=== PATIENT | female | born 1990 | race Caucasian/White ===

== ENCOUNTER 2019-08-12 08:30 | Emergency (ER) | payer SELFPAY ==
--- NOTE | 2019-08-12 08:51 | ED Physician Documentation ---
Ear Complaints - HISTORIAN Historian: patient - HPI Stated Complaint: left ear pain Chief Complaint: Ear Complaints Additional Information: Patient presents to ED with a 2 month history of left ear pain. She denies cough, congestion, fever, nasal congestion, shortness of breath. Timing: still present Location of Pain: L ear Severity: mild Associated Symptoms: denies: fever - ROS CONST: no problems CVS/RESP: none GI/: denies: nausea MS/SKIN/LYMPH: none NEURO/PSYCH: none - PAST HX Past History: none Home Medications: Ambulatory Orders Medication Instructions Recorded Citalopram Hydrobromide [Celexa] 40 mg PO QD 08/12/19 Neomycin/Polymyxin B/Hydrocort 4 drop OT TID 7 Days #1 bottle 08/12/19 [Cortisporin Otic] - SOCIAL HX Smoking History: non-smoker Alcohol Use: none Drug Use: none - FAMILY HX Family History: No - REVIEWED ASSESSMENTS Nursing Assessment Reviewed: Yes Vitals Reviewed: Yes Ear Complaint Physical Exam - EXAM General Appearance: no acute distress, alert Ear: auricle nml, pain w movement of auricl, left, other (left ear canal red/tender) Mouth/Throat: pharynx nml Nose: nml inspection Head/Neck: atraumatic. No: cervical lymphadenopathy Eye: PERRL Resp/CVS: chest non-tender, breath sounds nml, heart sounds nml Abdomen: non-tender Skin: nml color, no skin rash Neuro/Psych: oriented x3, mood/affect nml Discharge Clincal Impression: Otitis externa Qualifiers: Otitis externa type: diffuse Chronicity: acute Laterality: left Qualified Code(s): H60.312 - Diffuse otitis externa, left ear Prescriptions: Neomycin/Polymyxin B/Hydrocort [Cortisporin Otic] 4 drop OT TID 7 Days #1 bottle Referrals: Primary Doctor,No [Primary Care Provider] - 2 Days Additional Instructions: 1. Use ear drops to left ear x 7 days 2. After completion of ear drops, start daily Swimmer's Ear drops to both ears daily to prevent future problems 3. Add daily antihistamine such as Claritin, Zyrtec, Xyzal, or Ritika 4. Daily nasal steroid spray such as Flonase may be beneficial 5. Follow up with PCP within 1 week 6. Return to ER for new or worsening symptoms Condition: Stable Decision to Admit: NO Date of Decison to Admit: 08/12/19 Decision Time: 08:55
[2019-08-12 08:52] VITALS: BP 110/74
== END 2019-08-12 09:00 ==
LOC: ED 08:30
DX: H60.312 Diffuse otitis externa, left ear (principal)
CPT/HCPCS: 99281; 99284